=== PATIENT | male | born 1960 | race Asian ===

== ENCOUNTER 2022-09-15 12:26 | Emergency (ER) | payer BC, MEDICAID ==
[~2022-09-15] VITALS: Ht 170.2 cm; Wt 71.2 kg
[2022-09-15 12:31] VITALS: BP 125/70
--- NOTE | 2022-09-15 13:22 | NUR ---
PATIENT AMBULATORY TO BED 08
[2022-09-15] MEDS ORDERED: CEPH-588 PO ×2 (14:00→14:34)
[2022-09-15] MEDS ORDERED: METF-346 PO ×2 (14:00→14:34)
--- NOTE | 2022-09-15 14:00 | NUR ---
Pt bibs for some bleeding at R small toe. Pt is daibetic who is non adherent with medication or diet. Pt has not picked up his px since 2019. Pt denies trauma at toe. Pt is a/o x 4, vss, no ss of acute distress, breathing equal and unlabored, speech clear. PA has seen pt.
--- NOTE | 2022-09-15 14:24 | NUR ---
ORTHO SHOE APPLIED TO R FOOT. WOUND CLEANED
--- NOTE | 2022-09-15 14:30 | NUR ---
Pt speak tagalog and spoke with another RN who speaks the same language about why he has not been adhering to prescriptions. It seems pt has not been having px sent to the appropriate pharmacy. Pharmacy updated in computer by another RN. PA aware and will resubmit aci and px.
[2022-09-15 15:22] VITALS: BP 130/76
--- NOTE | 2022-09-15 15:23 | NUR ---
ACI given and reviewed with pt. 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. Pt teaching for necessitation of medical adherence reinforced. Pt is wound cleaned, ortho shoe given. Pt a/o x 4, vss, no ss of acute distress, breathing equal and unlabored, speech clear, ambulated well to pov.
== END 2022-09-15 15:22 | disposition home or self-care (01) ==
LOC: MED 12:26
DX: S92.531A Displaced fracture of distal phalanx of right lesser toe(s), initial encounter for closed fracture (principal); E11.621 Type 2 diabetes mellitus with foot ulcer; L97.519 Non-pressure chronic ulcer of other part of right foot with unspecified severity; I10 Essential (primary) hypertension; Z79.899 Other long term (current) drug therapy; Z79.2 Long term (current) use of antibiotics; X58.XXXA Exposure to other specified factors, initial encounter; Y92.89 Other specified places as the place of occurrence of the external cause; Y93.89 Activity, other specified; Y99.0 Civilian activity done for income or pay
CPT/HCPCS: 73630; 99283